=== PATIENT | male | born 1985 ===

== ENCOUNTER 2018-11-11 09:11 | Emergency (ER) | payer BC ==
[2018-11-11] MEDS ORDERED: Acetaminophen TAB* 325 MG PO ONE (09:56)
--- NOTE | 2018-11-11 10:07 | ED ---
GI/ HPI - HPI Summary HPI Summary: The patient is a 33 y/o M presenting to [facility] with a chief complaint of sudden onset right groin pain this morning. He reports that he has been helping his friend move over the last five days with lifting before developing the pain, which is also localized at the top of the right testicle, pointing to the epididymal area. The pain is currently rated 4/10 in severity, and the pain is aggravated by movement, which is when he mostly notices the pain. He additionally c/o odorous urine but denies discharge. He also denies any fever, chills, erythema of eyes, sore throat, CP, SOB, cough, abdominal pain, N/V, dysuria, hematuria, myalgia, edema, rash, or dizziness. There was not any impact or blunt trauma to the area. He is currently in a monogamous relationship with his , and they are trying to conceive their second child; their first child is currently one y/o, and the patient has been lifting his child up. PMHx of gout. Nonsmoker, occasional EtOH, marijuana use. - History of Current Complaint Chief Complaint: EDUrogenitalProblems Time Seen by Provider: 11/11/18 09:20 Stated Complaint: TESTICULAR PAIN PER PT Hx Obtained From: Patient Onset/Duration: Started Hours Ago, Still Present Timing: Lasting Hours Severity: Mild Current Severity: Moderate Pain Intensity: 4 Location of Pain: Groin - right Additional Locations for Males: Testicles - right Pain Characteristics: Aching Associated Signs and Symptoms: Positive: Other: - NEGATIVE: erythema of eyes, sore throat, CP, SOB, myalgia, edema, rash. Negative: Dizziness, Nausea, Vomiting, Discharge, Fever, Hematuria, Dysuria, Chills, Abdominal Pain, Cough Aggravating Factor(s): Movement Alleviating Factor(s): Rest - Allergy/Home Medications Allergies/Adverse Reactions: Allergies Allergy/AdvReac Type Severity Reaction Status Date / Time No Known Allergies Allergy Verified 11/11/18 09:13 Home Medications: Home Medications NK [No Home Medications Reported] 11/11/18 [History Confirmed 11/11/18] PMH/Surg Hx/FS Hx/Imm Hx Endocrine/Hematology History: Denies: Hx Diabetes Cardiovascular History: Denies: Hx Hypertension History: Denies: Hx Kidney Stones Musculoskeletal History: Reports: Hx Gout Opthamlomology History: Denies: Hx Legally Blind EENT History: Denies: Hx Deafness - Surgical History Surgical History: None Surgery Procedure, Year, and Place: none Infectious Disease History: No Infectious Disease History: Denies: Traveled Outside the [place] in Last 30 Days - Family History Known Family History: Negative: Diabetes, Renal Disease - Social History Alcohol Use: Occasionally Hx Substance Use: Yes Substance Use Type: Reports: Marijuana Substance Use Comment - Amount & Last Used: Occasional Hx Tobacco Use: No Smoking Status (MU): Never Smoked Tobacco Review of Systems Negative: Fever, Chills Negative: Erythema Negative: Ear Ache Negative: Chest Pain Negative: Shortness Of Breath, Cough Negative: Abdominal Pain, Vomiting, Nausea Positive: other - right groin pain particularly at top of right testicle, odorous urine. Negative: dysuria, discharge, hematuria Negative: Myalgia, Edema Negative: Rash Neurological: Other - NEGATIVE: dizziness All Other Systems Reviewed And Are Negative: Yes Physical Exam - Summary Physical Exam Summary: Constitutional: Well-developed, Well-nourished, Alert. (-) Distressed Skin: Warm, Dry HENT: Normocephalic; Atraumatic Eyes: Conjunctiva normal Neck: Musculoskeletal ROM normal neck. (-) JVD, (-) Stridor, (-) Tracheal deviation Cardio: Rhythm regular, rate normal, Heart sounds normal; Intact distal pulses; The pedal pulses are 2+ and symmetric. Radial pulses are 2+ and symmetric. (-) Murmur Pulmonary/Chest wall: Effort normal. (-) Respiratory distress, (-) Wheezes, (-) Rales Abd: Soft, (-) tenderness, (-) Distension, (-) Guarding, (-) Rebound : Testes are normal, Mild tenderness at epididymis, Body of testicle is not particular tender, In the standing position patient is evaluated for hernias, No inguinal hernia palpated, No evidence of Fourniers gangrene Musculoskeletal: (-) Edema Lymph: (-) Cervical adenopathy Neuro: Alert, Oriented x3 Psych: Mood and affect Normal Triage Information Reviewed: Yes Vital Signs On Initial Exam: Initial Vitals Temp Pulse Resp BP Pulse Ox 98.5 F 57 18 127/80 99 11/11/18 09:13 11/11/18 09:13 11/11/18 09:13 11/11/18 09:13 11/11/18 09:13 Vital Signs Reviewed: Yes Diagnostics - Vital Signs Vital Signs Temp Pulse Resp BP Pulse Ox 11/11/18 09:13 98.5 F 57 18 127/80 99 - Laboratory Lab Statement: Any lab studies that have been ordered have been reviewed, and results considered in the medical decision making process. - Ultrasound Testicular US Ultrasound Interpretation Completed By: Radiologist Summary of Ultrasound Findings: Impression: Sonographically normal-appearing testicles. ED physician has reviewed this radiology report. Re-Evaluation - Re-Evaluation First Eval Re-Evaluation Time: 11:50 Comment: We discussed results and discharge plan. GIGU Course/Dx - Course Course Of Treatment: Patient is a 33 y/o M with cc right groin pain localized in the top of the right testicle at the epididymal area developing after helping a friend move over the last fews. Pain is aggravated and most noticeable with movement. Reports odorous urine without discharge, dysuria, hematuria, or fever. In a monogamous relationship with . Upon physical exam , the patient has exam with normal testes, mild tenderness at epididymis, body of testicle is not particular tender, in the standing position patient is evaluated for hernias without inguinal hernia palpated, and there is no evidence of Fourniers gangrene. In the ED course, the patient was administered Tylenol 650mg PO. UA is negative for infection. Testicular ultrasound is negatative for abnormalities. The patient's symptoms are atypical for testicular torsion, and there is no evidence of hernia. His dx is right groin strain. He is instructed to follow up with his PCP in 2-3 days and use a heating pad, Tylenol, and Ibuprofen for pain as needed. Patient understands and agrees with the plan. - Diagnoses Provider Diagnoses: Strain of muscle of right groin region Discharge - Sign-Out/Discharge Documenting (check all that apply): Patient Departure - Patient will be discharged home. Patient Received Moderate/Deep Sedation with Procedure: No - Discharge Plan Condition: Good Disposition: HOME Patient Education Materials: Groin Strain (ED) Referrals: Jameson WHEELER,SUMMER Resendiz [Primary Care Provider] - 3 Days Additional Instructions: You can use a heating pad, Tylenol, and Ibuprofen for pain as needed. Rest will help alleviate the pain as well. Follow up with your primary care provider in 2-3 days. RETURN TO THE EMERGENCY DEPARTMENT FOR CHANGING OR WORSENING SYMPTOMS. - Billing Disposition and Condition Condition: GOOD Disposition: Home - Attestation Statements Document Initiated by Aly: Yes Documenting Scribe: Zoila King Provider For Whom Aly is Documenting (Include Credential): Dr. Keith Reilly MD Scribe Attestation: IZoila, scribed for Dr. Keith Reilly MD on 11/11/18 at 1151. Status of Scribe Document: Ready
[2018-11-11 10:17] LABS: Urine Appearance Clear; Urine Bilirubin Negative (Negative); Urine Blood Negative (Negative); Urine Color Yellow; Urine Glucose Negative (Negative); Urine Ketones Negative (Negative); Urine Nitrite Negative (Negative); Urine Protein Negative (Negative); Urine Specific Gravity 1.021 (1.010-1.030); Urine Urobilinogen Negative (Negative)
[2018-11-11 12:15] VITALS: BP 125/76
== END 2018-11-11 12:14 | disposition home or self-care (01) ==
LOC: ED 09:11
DX: S39.011A Strain of muscle, fascia and tendon of abdomen, initial encounter (principal); X50.0XXA Overexertion from strenuous movement or load, initial encounter; Y92.9 Unspecified place or not applicable
CPT/HCPCS: 76870; 81003; 99282; A9270-GY